=== PATIENT | male | born 1980 | race Caucasian/White ===

== ENCOUNTER 2024-08-29 13:10 | Emergency (ER) | payer OTHER, SELFPAY ==
--- NOTE | 2024-08-29 13:11 | DI.RAD.S_ITS ---
PROCEDURE: XR CHEST 1V INDICATIONS: chest pain TECHNIQUE: One view of the chest was acquired. COMPARISON: None. FINDINGS: Surgical changes and devices: None. Lungs and pleura: Lungs are clear. No pleural effusions or pneumothorax. Mediastinum: Mediastinal contours appear normal. Heart size is normal. Bones and chest wall: No suspicious bony lesions. Overlying soft tissues appear unremarkable. IMPRESSION: No acute cardiopulmonary abnormality is seen. Dictated by: Yahir Syed M.D. on 08/29/2024 at 13:29 Approved by: Yahir Syed M.D. on 08/29/2024 at 13:29
[2024-08-29 13:15] VITALS: BP 117/61; PULSE 76; RESP 14; TEMP 36.9; O2SAT 100; BMI 24.4
--- NOTE | 2024-08-29 13:15 | EKG_ITS ---
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
[2024-08-29 13:44] LABS: Add Manual Diff / Slide Review NO; Basophils Absolute Auto 0 /uL (0-100); Basophils Percent Auto 0.4 % (0-2); Eosinophils Absolute Auto 100 /uL (0-450); Eosinophils Percent Auto 1.6 % (2-4); Hematocrit 46.3 % (41-53); Hemoglobin 15.4 g/dL (13.5-17.5); Lymphocytes Absolute Auto 1300 /uL (1100-4500); Lymphocytes Percent Auto 24.8 % (25-40); Mean Corpuscular HGB Conc 33.2 % (30-36); Mean Corpuscular Hemoglobin 29.9 PG (26-34); Mean Corpuscular Volume 89.9 fL (80-100); Monocytes Absolute Auto 300 /uL (0-900); Neutrophils Absolute Auto 3400 /uL (1500-7000); Neutrophils Percent Auto 67.2 % (50-75); Platelet Count 189 X10^3/uL (150-400); Red Blood Cell Count 5.16 X10^6/uL (4.5-5.9); White Blood Cell Count 5.1 X10^3/uL (4.5-11.0)
[2024-08-29 13:51] LABS: Alanine Aminotransferase 23 IU/L (<50); Albumin 4.5 g/dL (3.5-5.0); Albumin Globulin Ratio 1.3 (1.0-2.8); Alkaline Phosphatase 92 U/L (38-126); Aspartate Aminotransferase 42 IU/L (17-59); BUN Creatinine Ratio 14.3 (6-22); Bilirubin Total 0.8 mg/dL (0.2-1.3); Blood Urea Nitrogen 14 mg/dL (9-20); Calcium 9.2 mg/dL (8.4-10.2); Carbon Dioxide 26 mmol/L (22-32); Chloride 106 mmol/L (98-107); Creatine Kinase 67 U/L (55-170); Estimated Glomerular Filt Rate > 60 mL/min (>60); Globulin 3.6 g/dL (1.7-4.1); Glucose 97 mg/dL (70-100); HEMOLYSIS 46 (0-50); Lipase 67 U/L (23-300); Potassium 4.3 mmol/L (3.4-5.1); Sodium 137 mmol/L (137-145); Total Protein 8.1 g/dL (6.3-8.2)
[2024-08-29 14:02] LABS: INR 1.1 (0.9-1.3); NT-proBNP (BNP-Adult 18+) < 20 pg/mL (<125); PTT Partial Thromboplastin Tim 34 SECONDS (25.1-36.5); Prothrombin Time 11.9 SECONDS (9.4-12.5); Troponin I < 0.012 ng/mL (0.01-0.034)
--- NOTE | 2024-08-29 15:08 | ED.CHESTPAIN ---
HPI - Chest Pain <Mariia Faust PA-C - Last Filed: 08/29/24 16:26> General Chief Complaint: Chest Pain Stated Complaint: Left chest pain with inspiration,pain free now Time Seen by Provider: 08/29/24 15:08 Source: patient Mode of arrival: EMS Limitations: no limitations History of Present Illness HPI narrative: Mr. Ohara is a pleasant 44-year-old male with a past medical history of SVT who presents to the emergency department for an episode of left-sided rib/chest pain that occurred for approximately 30 minutes prior to arrival. 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 Pain was so severe took his breath away. States that this pain lasted for about 30 minutes before completely self resolved. States he had similar pain about 1 month ago that he did not have evaluation for. Patient states a few years ago he had 1 episode of SVT and has since had numerous cardiac workups including stress test and echoes which have been normal. At this time he is completely pain-free. He denies any medication use. Denies leg swelling or pain or history of DVT. Denies central chest pain, back pain, abdominal pain, nausea, vomiting, fevers, chills, cough, smoking, recent surgery or travel, hormone use. He has not allergic to any medications. He does not smoke or do drugs. He occasionally has a glass of wine. Related Data Allergies Allergy/AdvReac Type Severity Reaction Status Date / Time No Known Drug Allergies Allergy Verified 08/29/24 13:21 Review of Systems <Mariia Faust PA-C - Last Filed: 08/29/24 16:26> Review of Systems ROS Unobtainable: All systems reviewed & are unremarkable except as noted in HPI and below Patient History <Mariia Faust PA-C - Last Filed: 08/29/24 16:26> Social History Smoking Status: Unknown if ever smoked Smoking Status: Unknown if ever smoked Exam <Mariia Faust PA-C - Last Filed: 08/29/24 16:26> Narrative Exam Narrative: GENERAL: 44 year old patient appears stated age. Well-developed patient, in no acute distress. HEAD: Atraumatic. Normocephalic. EYES: Extraocular motions intact. No scleral icterus. No injection or drainage. ENT: Nose without bleeding, purulent drainage. NECK: Trachea midline. Cervical ROM intact. CARDIOVASCULAR: Regular rate and rhythm. No chest wall tenderness. RESPIRATORY: ?Nonlabored respirations. ?Speaking in clear, full sentences. ?Clear to auscultation. Breath sounds equal bilaterally. No wheezes, rales, or rhonchi. ? GASTROINTESTINAL: Abdomen soft, non-tender, nondistended. EXTREMITIES: No edema or joint tenderness. BACK: Nontender without deformity or crepitance. NEURO: AOx3. ?Clear speech. ?Moves all 4 extremities appropriately. SKIN: No rash or erythema of visible areas Initial Vital Signs Initial Vital Signs: Vital Signs Temperature 98.4 F 08/29/24 13:15 Pulse Rate 76 08/29/24 13:15 Respiratory Rate 14 08/29/24 13:15 Blood Pressure 117/61 08/29/24 13:15 Pulse Oximetry 100 08/29/24 13:15 Oxygen Delivery Method Room Air 08/29/24 13:15 <Dolores Harrison DO - Last Filed: 08/31/24 08:23> Initial Vital Signs Initial Vital Signs: Vital Signs Temperature 98.4 F 08/29/24 13:15 Pulse Rate 76 08/29/24 13:15 Respiratory Rate 14 08/29/24 13:15 Blood Pressure 117/61 08/29/24 13:15 Pulse Oximetry 100 08/29/24 13:15 Oxygen Delivery Method Room Air 08/29/24 13:15 Course <Mariia Faust PA-C - Last Filed: 08/29/24 16:26> Orders Ordered: ED Orders 08/29/24 13:11 XR chest 1V Stat EKG-12 Lead Stat 08/29/24 13:18 Complete Blood Count AUTO DIFF Stat Comprehensive Metabolic Panel Stat D Dimer Stat Lipase Stat Magnesium Stat NT-proBNP (BNP-Adult 18+) Stat PTT Partial Thromboplastin Bruce Stat Prothrombin Time INR Stat Troponin & CK Cardiac Panel Stat 08/29/24 15:37 Troponin I Stat Vital Signs Vital signs: Vital Signs - 8 hr 08/29/24 13:15 Temperature 98.4 F Pulse Rate 76 Respiratory Rate 14 Blood Pressure 117/61 Pulse Oximetry 100 Oxygen Delivery Method Room Air <DO Chano Coronel Last Filed: 08/31/24 08:23> Orders Ordered: ED Orders 08/29/24 13:11 XR chest 1V Stat EKG-12 Lead Stat 08/29/24 13:18 Complete Blood Count AUTO DIFF Stat Comprehensive Metabolic Panel Stat D Dimer Stat Lipase Stat Magnesium Stat NT-proBNP (BNP-Adult 18+) Stat PTT Partial Thromboplastin Bruce Stat Prothrombin Time INR Stat Troponin & CK Cardiac Panel Stat 08/29/24 15:37 Troponin I Stat Vital Signs Vital signs: Vital Signs - 8 hr 08/29/24 13:15 Temperature 98.4 F Pulse Rate 76 Respiratory Rate 14 Blood Pressure 117/61 Pulse Oximetry 100 Oxygen Delivery Method Room Air MDM - Chest Pain <Mariia Faust PA-C - Last Filed: 08/29/24 16:26> Lab Data 08/29/24 13:18 08/29/24 13:18 Labs: Lab Results 08/29/24 08/29/24 Range/Units 13:18 15:37 WBC 5.1 (4.5-11.0) X10^3/uL RBC 5.16 (4.5-5.9) X10^6/uL Hgb 15.4 (13.5-17.5) g/dL Hct 46.3 (41-53) % MCV 89.9 (80-100) fL MCH 29.9 (26-34) PG MCHC 33.2 (30-36) % RDW 14.0 (11.6-14.8) % Plt Count 189 (150-400) X10^3/uL Neut % (Auto) 67.2 (50-75) % Lymph % (Auto) 24.8 L (25-40) % [place] % (Auto) 6.0 (3-14) % Eos % (Auto) 1.6 L (2-4) % Baso % (Auto) 0.4 (0-2) % Neut # (Auto) 3400 (4842-9971) /uL Lymph # (Auto) 1300 (7308-2589) /uL [place] # (Auto) 300 (0-900) /uL Eos # (Auto) 100 (0-450) /uL Baso # (Auto) 0 (0-100) /uL PT 11.9 (9.4-12.5) SECONDS INR 1.1 (0.9-1.3) APTT 34 (25.1-36.5) SECONDS D-Dimer < 215 (<500) ng/ml Sodium 137 (137-145) mmol/L Potassium 4.3 (3.4-5.1) mmol/L Chloride 106 (98-107) mmol/L Carbon Dioxide 26 (22-32) mmol/L BUN 14 (9-20) mg/dL Creatinine 0.98 (0.66-1.25) mg/dL Estimated GFR > 60 (>60) mL/min BUN/Creatinine Ratio 14.3 (6-22) Glucose 97 (70-100) mg/dL Calcium 9.2 (8.4-10.2) mg/dL Magnesium 2.0 (1.6-2.3) mg/dL Total Bilirubin 0.8 (0.2-1.3) mg/dL AST 42 (17-59) IU/L ALT 23 (<50) IU/L Alkaline Phosphatase 92 (38-126) U/L Total Creatine Kinase 67 (55-170) U/L Troponin I < 0.012 < 0.012 (0.01-0.034) ng/mL NT-Pro-B Natriuret Pep < 20 (<125) pg/mL Total Protein 8.1 (6.3-8.2) g/dL Albumin 4.5 (3.5-5.0) g/dL Globulin 3.6 (1.7-4.1) g/dL Albumin/Globulin Ratio 1.3 (1.0-2.8) Lipase 67 (23-300) U/L [facility] Narrative Medical decision making narrative: 44-year-old healthy male presents to the emergency department for 30 minute episode of left-sided chest/rib pain. He has a history of SVT but reports subsequent negative cardiac workups. Differential diagnosis includes but is not limited to ACS/AZ, PE, costochondritis, gastritis, hiatal hernia, pancreatitis, muscle spasm, nerve pain, pneumonia, etc. On exam patient is in no acute distress, nontoxic appearing, vital signs within normal limits. He had a 30 minute episode of sharp severe left-sided anterior ribcage pain that self-resolved. He has a negative cardiac history except for 1 episode of SVT about 3 years ago. He has no clinical signs of DVT. We will obtain cardiac workup including D-dimer. Labs reveal normal WBC count at 5.1, no anemia. Normal platelets 189. Normal coags. D-dimer negative at 215, no CTA warranted. Troponin negative x2. CMP completely within normal limits. Lipase negative at 67. Chest x-ray reveals no acute cardiopulmonary abnormality is seen. EKG reveals sinus rhythm with short SC. Patient remained chest free during the emergency department. He is relieved that we have ruled out ACS/PE/other emergent cardiac/pulmonary abnormalities but he is frustrated without having a definitive answer. We discussed other possibilities extensively including musculoskeletal/GI causes and I recommend he follow up with his PCP promptly and then a GI doctor for further evaluation as well. Patient verbalized understanding of all information and is agreeable to plan. He is stable for discharge home. <Dolores Harrison, DO - Last Filed: 08/31/24 08:23> Lab Data Labs: Lab Results 08/29/24 08/29/24 Range/Units 13:18 15:37 WBC 5.1 (4.5-11.0) X10^3/uL RBC 5.16 (4.5-5.9) X10^6/uL Hgb 15.4 (13.5-17.5) g/dL Hct 46.3 (41-53) % MCV 89.9 (80-100) fL MCH 29.9 (26-34) PG MCHC 33.2 (30-36) % RDW 14.0 (11.6-14.8) % Plt Count 189 (150-400) X10^3/uL Neut % (Auto) 67.2 (50-75) % Lymph % (Auto) 24.8 L (25-40) % [place] % (Auto) 6.0 (3-14) % Eos % (Auto) 1.6 L (2-4) % Baso % (Auto) 0.4 (0-2) % Neut # (Auto) 3400 (1644-6858) /uL Lymph # (Auto) 1300 (5319-7583) /uL [place] # (Auto) 300 (0-900) /uL Eos # (Auto) 100 (0-450) /uL Baso # (Auto) 0 (0-100) /uL PT 11.9 (9.4-12.5) SECONDS INR 1.1 (0.9-1.3) APTT 34 (25.1-36.5) SECONDS D-Dimer < 215 (<500) ng/ml Sodium 137 (137-145) mmol/L Potassium 4.3 (3.4-5.1) mmol/L Chloride 106 (98-107) mmol/L Carbon Dioxide 26 (22-32) mmol/L BUN 14 (9-20) mg/dL Creatinine 0.98 (0.66-1.25) mg/dL Estimated GFR > 60 (>60) mL/min BUN/Creatinine Ratio 14.3 (6-22) Glucose 97 (70-100) mg/dL Calcium 9.2 (8.4-10.2) mg/dL Magnesium 2.0 (1.6-2.3) mg/dL Total Bilirubin 0.8 (0.2-1.3) mg/dL AST 42 (17-59) IU/L ALT 23 (<50) IU/L Alkaline Phosphatase 92 (38-126) U/L Total Creatine Kinase 67 (55-170) U/L Troponin I < 0.012 < 0.012 (0.01-0.034) ng/mL NT-Pro-B Natriuret Pep < 20 (<125) pg/mL Total Protein 8.1 (6.3-8.2) g/dL Albumin 4.5 (3.5-5.0) g/dL Globulin 3.6 (1.7-4.1) g/dL Albumin/Globulin Ratio 1.3 (1.0-2.8) Lipase 67 (23-300) U/L ECG Data Attestation: I personally reviewed and interpreted this ECG as follows: Prior ECG tracings: not available for review Interpretation: Mank: Sinus rhythm, short SC, rate of 71 SC 96 QRS of 96 QTC 412, no acute ST changes appreciated. Discharge Plan Departure Patient Disposition: Home Clinical Impression: Intermittent left-sided chest pain Instructions: DI for Chest Pain Activity Restrictions/Additional Instructions: Today, we completed a work up for left sided sharp chest pain. Sometimes, we do not always find the cause for your symptoms in one ER visit. The findings on your exam today and on your blood work and/or imaging is reassuring. At this time, it is not 100% certain what is causing your symptoms, but we feel you can be discharged from the emergency department. It is possible this may worsen or you may get better. Please, if you get worse or your symptoms change, return to the emergency department. Otherwise, please follow up with your primary care doctor in 2-3 days. It is possible that your symptoms are coming from a musculoskeletal or a gastrointestinal cause, therefore I do think he would benefit from follow up with the GI doctor. Please follow up with your primary care doctor within the next 2-3 days for ER follow-up. (If you do not have a PCP you can call [phone]. ?to schedule an appointment with an [facility] Primary Care Provider) IF YOU DEVELOP ANY NEW OR WORSENING SYMPTOMS, RETURN TO THE ER! Please read the attached instructions, they highlight more specific treatments and interventions for you at home. Thank you for letting me participate in your care, Mariia Faust PA-C Referrals: Miscellaneous,Doctor, [Primary Care Provider] - Stand Alone Forms: Patient Portal/API/Survey ED Sign-out <Dolores Harrison DO - Last Filed: 08/31/24 08:23> Cosign ED Attending Abbie Attestation: I was immediately available in the department for consultation.
[2024-08-29 15:42] LABS: D Dimer < 215 ng/ml (<500)
[2024-08-29 16:09] LABS: Troponin I < 0.012 ng/mL (0.01-0.034)
[2024-08-29 16:33] VITALS: BP 106/65; PULSE 71; RESP 16; TEMP 36.8; O2SAT 98
== END 2024-08-29 16:34 | disposition home or self-care (01) ==
PROVIDERS: Emergency Medicine; Emergency Provider Physician Assistant
DX: R07.9 Chest pain, unspecified (principal); R07.81 Pleurodynia
CPT/HCPCS: 36415; 71045; 80053; 82550; 83690; 83735; 83880; 84484; 85025; 85379; 85610; 85730; 93005; 93010; 99283; 99284

== ENCOUNTER 2024-11-19 17:26 | Emergency (ER) | payer OTHER, SELFPAY ==
[2024-11-19] VITALS (14 sets, daily range): BP systolic 108–130; BP diastolic 69–85; PULSE 60–73; RESP 8–20; TEMP 37; O2SAT 97–100; BMI 24.4
--- NOTE | 2024-11-19 17:58 | DI.RAD.S_ITS ---
PROCEDURE: XR CHEST 1V INDICATIONS: chest pain TECHNIQUE: One view of the chest was acquired. COMPARISON: [facility], CR, XR CHEST 1V, 08/29/2024, 13:13. FINDINGS: Surgical changes and devices: None. Lungs and pleura: Lungs are clear. No pleural effusions or pneumothorax. Mediastinum: Mediastinal contours appear normal. Heart size is normal. Bones and chest wall: No suspicious bony lesions. Overlying soft tissues appear unremarkable. IMPRESSION: No acute cardiopulmonary abnormality is seen. Dictated by: Lauro Goldstein M.D. on 11/19/2024 at 18:58 Approved by: Lauro Goldstein M.D. on 11/19/2024 at 18:58
--- NOTE | 2024-11-19 17:58 | EKG_ITS ---
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
[2024-11-19 18:29] LABS: Add Manual Diff / Slide Review NO; Basophils Absolute Auto 0 /uL (0-100); Basophils Percent Auto 0.4 % (0-2); Eosinophils Absolute Auto 100 /uL (0-450); Eosinophils Percent Auto 1.7 % (2-4); Hematocrit 42.9 % (41-53); Hemoglobin 14.7 g/dL (13.5-17.5); Lymphocytes Absolute Auto 1800 /uL (1100-4500); Lymphocytes Percent Auto 29.4 % (25-40); Mean Corpuscular HGB Conc 34.2 % (30-36); Mean Corpuscular Hemoglobin 30.2 PG (26-34); Mean Corpuscular Volume 88.2 fL (80-100); Monocytes Absolute Auto 400 /uL (0-900); Neutrophils Absolute Auto 3800 /uL (1500-7000); Neutrophils Percent Auto 61.5 % (50-75); Platelet Count 184 X10^3/uL (150-400); Red Blood Cell Count 4.87 X10^6/uL (4.5-5.9); Red Cell Distribution Width 13.6 % (11.6-14.8); White Blood Cell Count 6.2 X10^3/uL (4.5-11.0)
[2024-11-19] MEDS: ASPIRIN 81 MG CHEW TAB 324 MG PO (18:35)
[2024-11-19 18:37] LABS: Prothrombin Time 11.2 SECONDS (9.4-12.5)
[2024-11-19 18:39] LABS: PTT Partial Thromboplastin Tim 31 SECONDS (25.1-36.5)
[2024-11-19 18:41] LABS: Creatine Kinase 149 U/L (55-170); HEMOLYSIS < 15 (0-50); Sodium 138 mmol/L (137-145)
[2024-11-19 18:42] LABS: Alanine Aminotransferase 21 IU/L (<50); Albumin 4.4 g/dL (3.5-5.0); Albumin Globulin Ratio 1.3 (1.0-2.8); Alkaline Phosphatase 86 U/L (38-126); Aspartate Aminotransferase 32 IU/L (17-59); BUN Creatinine Ratio 15.8 (6-22); Bilirubin Total 0.5 mg/dL (0.2-1.3); Blood Urea Nitrogen 19 mg/dL (9-20); Calcium 9.1 mg/dL (8.4-10.2); Carbon Dioxide 27 mmol/L (22-32); Chloride 104 mmol/L (98-107); Estimated Glomerular Filt Rate > 60 mL/min (>60); Globulin 3.5 g/dL (1.7-4.1); Glucose 95 mg/dL (70-100); Lipase 103 U/L (23-300); Magnesium 1.9 mg/dL (1.6-2.3); Total Protein 7.9 g/dL (6.3-8.2)
--- NOTE | 2024-11-19 18:45 | PC.NURSE ---
Pt reports chronic, intermittent, left sided chest pressure that happened 5 times today and lasted a few seconds. Pt has had this pain almost every day for the past year. Denies any trauma, denies any SOB, n/v or any other symptoms. 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 Came in today to ED because this happened multiple times today. Currently no chest pressure/discomfort. Call light within reach and encouraged to use for any changes or needs.
[2024-11-19 18:53] LABS: NT-proBNP (BNP-Adult 18+) < 20 pg/mL (<125); Troponin I < 0.012 ng/mL (0.01-0.034)
[2024-11-19 20:59] LABS: Troponin I < 0.012 ng/mL (0.01-0.034)
--- NOTE | 2024-11-19 22:47 | ED_ITS ---
HPI - Chest Pain General Chief Complaint: Chest Pain Stated Complaint: chest px Time Seen by Provider: 11/19/24 18:41 Source: patient Mode of arrival: Ambulatory History of Present Illness HPI narrative: otherwise healthy 44-year-old gentleman presents with severe lancinating pain left 10th rib mid clavicular line reproducible with pressing so painful that it takes his breath away and caused significant anxiety. He was sitting watching television when the pain happened this evening. He had a similar episode in early August with complete cardiac workup. He has since had chest CT scans, gastroenterology referrals has endoscopies scheduled. He had a cardiac evaluation that did not suggest coronary events. He does continue to be quite active including weightlifting. He states that he has not changed his routine and did not add any new exercises over the last couple of days. He has met with his primary care physician after similar episode occurred in August. The pain is not associated with nausea, diaphoresis, dyspnea. He has no palpitations. He notes that he had an episode of SVT approximately 3 years ago with complete cardiac workup at that time including EP studies. He was given a [facility] cardiac bill of [employer] at that time as well Related Data Allergies Allergy/AdvReac Type Severity Reaction Status Date / Time No Known Drug Allergies Allergy Verified 09/01/24 08:36 Review of Systems Review of Systems Narrative: Pertinent positive and negative findings as per HPI Patient History Social History Smoking Status: Never smoker Smoking Status: Never smoker Exam Initial Vital Signs Initial Vital Signs: Vital Signs Temperature 98.6 F 11/19/24 17:49 Pulse Rate 73 11/19/24 17:49 Respiratory Rate 20 11/19/24 17:49 Blood Pressure 128/85 11/19/24 17:49 Pulse Oximetry 100 11/19/24 17:49 Oxygen Delivery Method Room Air 11/19/24 17:49 General: Healthy appearing, in no acute distress. Able to give a complete and coherent history. Well-nourished well-developed HEENT: Moist mucous membranes, normal sclera with reactive pupils, Neck: No JVD, supple Respiratory: Lungs are clear to auscultation, no wheezing no rales no rhonchi. Full and symmetrical air movement Cardiac: Regular rate and rhythm no murmurs no bruits. He does have reproducible point tenderness left 10th rib mid clavicular line without overlying skin changes. Abdomen: Soft, nontender, good bowel tones, no flank pain Skin: Warm and dry, no rashes Neurologic: Grossly neurologically intact with no obvious asymmetries or abnormalities Extremities: No trauma, well perfused Psych: Cooperative, appropriate insight and affect Course Orders Ordered: ED Orders 11/19/24 17:58 XR chest 1V Stat EKG-12 Lead Stat 11/19/24 18:20 Complete Blood Count AUTO DIFF Stat Comprehensive Metabolic Panel Stat Lipase Stat Magnesium Stat NT-proBNP (BNP-Adult 18+) Stat PTT Partial Thromboplastin Bruce Stat Prothrombin Time INR Stat Troponin & CK Cardiac Panel Stat 11/19/24 20:26 Trop I [Troponin I] Stat Discontinued Medications Aspirin (Aspirin 81 Mg Chew Tab) 324 mg PO NOW ONE Stop: 11/19/24 17:59 Last Admin: 11/19/24 18:35 Dose: 324 mg Documented By: MERCEDES Vital Signs Vital signs: Vital Signs - 8 hr 11/19/24 17:49 11/19/24 18:29 11/19/24 18:30 Temperature 98.6 F Pulse Rate 73 65 68 Respiratory Rate 20 Blood Pressure 128/85 Pulse Oximetry 100 97 100 Oxygen Delivery Method Room Air 11/19/24 18:30 11/19/24 19:00 11/19/24 19:00 Temperature Pulse Rate 62 Respiratory Rate 8 L Blood Pressure 116/79 122/76 Pulse Oximetry 100 Oxygen Delivery Method 11/19/24 19:30 11/19/24 19:30 11/19/24 20:00 Temperature Pulse Rate 62 Respiratory Rate 14 Blood Pressure 111/75 125/75 Pulse Oximetry 99 Oxygen Delivery Method Room Air 11/19/24 20:00 11/19/24 20:30 11/19/24 20:30 Temperature Pulse Rate 71 62 Respiratory Rate 17 13 Blood Pressure 110/73 Pulse Oximetry 99 99 Oxygen Delivery Method 11/19/24 21:00 11/19/24 21:00 11/19/24 21:30 Temperature Pulse Rate 63 Respiratory Rate 14 Blood Pressure 119/69 109/71 Pulse Oximetry 100 Oxygen Delivery Method 11/19/24 21:30 Temperature Pulse Rate 60 Respiratory Rate 14 Blood Pressure Pulse Oximetry 98 Oxygen Delivery Method Room Air MDM - Chest Pain Lab Data 11/19/24 18:20 11/19/24 18:20 Labs: Lab Results 11/19/24 11/19/24 Range/Units 18:20 20:26 WBC 6.2 (4.5-11.0) X10^3/uL RBC 4.87 (4.5-5.9) X10^6/uL Hgb 14.7 (13.5-17.5) g/dL Hct 42.9 (41-53) % MCV 88.2 (80-100) fL MCH 30.2 (26-34) PG MCHC 34.2 (30-36) % RDW 13.6 (11.6-14.8) % Plt Count 184 (150-400) X10^3/uL Neut % (Auto) 61.5 (50-75) % Lymph % (Auto) 29.4 (25-40) % [place] % (Auto) 7.0 (3-14) % Eos % (Auto) 1.7 L (2-4) % Baso % (Auto) 0.4 (0-2) % Neut # (Auto) 3800 (8688-9417) /uL Lymph # (Auto) 1800 (2775-8024) /uL [place] # (Auto) 400 (0-900) /uL Eos # (Auto) 100 (0-450) /uL Baso # (Auto) 0 (0-100) /uL PT 11.2 (9.4-12.5) SECONDS INR 1.0 (0.9-1.3) APTT 31 (25.1-36.5) SECONDS Sodium 138 (137-145) mmol/L Potassium 4.0 (3.4-5.1) mmol/L Chloride 104 (98-107) mmol/L Carbon Dioxide 27 (22-32) mmol/L BUN 19 (9-20) mg/dL Creatinine 1.20 (0.66-1.25) mg/dL Estimated GFR > 60 (>60) mL/min BUN/Creatinine Ratio 15.8 (6-22) Glucose 95 (70-100) mg/dL Calcium 9.1 (8.4-10.2) mg/dL Magnesium 1.9 (1.6-2.3) mg/dL Total Bilirubin 0.5 (0.2-1.3) mg/dL AST 32 (17-59) IU/L ALT 21 (<50) IU/L Alkaline Phosphatase 86 (38-126) U/L Total Creatine Kinase 149 (55-170) U/L Troponin I < 0.012 < 0.012 (0.01-0.034) ng/mL NT-Pro-B Natriuret Pep < 20 (<125) pg/mL Total Protein 7.9 (6.3-8.2) g/dL Albumin 4.4 (3.5-5.0) g/dL Globulin 3.5 (1.7-4.1) g/dL Albumin/Globulin Ratio 1.3 (1.0-2.8) Lipase 103 (23-300) U/L MDM Narrative Medical decision making narrative: CC:Left anterior sharp chest pain Complicating co-morbidities: prior episode in August of similar pain, SVT approximately 3 years ago Data collected from: patient Medical records reviewed: ER notes from August with similar pain are reviewed Differential considered: acute coronary syndrome, pneumothorax, rib pathology, musculoskeletal pain Exam documented above, pertinent findings include: reproducible pain 10th rib anterior midclavicular line without skin changes. Remainder of exam is benign Lab Test results independently reviewed as above. Pertinent findings: CBC is unremarkable chemistries are reassuring initial and repeat troponins are unremarkable Independently reviewed EKG: sinus rhythm at a rate of 63. No acute ischemic changes. He does have single PVC appreciated Imaging studies independently reviewed: chest x-ray is unremarkable Treatments: aspirin given on arrival Discussion: otherwise healthy 44-year-old gentleman with the acute onset severe chest pain that does appear to be musculoskeletal and point tender mid axillary line 10th rib. No findings on chest x-ray. The pain is not consistently at this spot my suspicion for fractures or bony tumor is low. The cardiac workup is unremarkable in his heart score is 0. There was no indication for additional imaging or hospitalization at this time. He has already discussed this issue with his primary care physician does have further follow up scheduled. He is safe for discharge Discharge Plan Departure Patient Disposition: Home Clinical Impression: Chest pain, musculoskeletal Instructions: DI for Atypical Chest Pain Activity Restrictions/Additional Instructions: thank you for coming in today, I think it was appropriate to come in for heart evaluation fortunately, your workup today was quite reassuring. Your chest x-ray was completely normal. Your EKG did not suggest acute heart abnormalities. Your blood work showed normal white blood cells, red blood cells, kidney function, liver function. There was no evidence of acute heart injury with your troponin testing which was repeated 2 hours later and again remained negative with the description of your pain and the fact that you complaint exactly to where it hurts and with pushing can make it hurt worse is strongly suspicious for musculoskeletal pain related to tendons or muscles along your rib. At this point I believe discharge home is safe. I am glad you discuss this with your primary care physician sounds like you have all appropriate workup already scheduled. If you find that you have chest pain that is deeper in your chest, is not reproducible with palpation is associated with being short of breath, dizzy or sweaty you do need to return to the ER Referrals: ProviderAbdias [Primary Care Provider] - Stand Alone Forms: Patient Portal/API/Survey
== END 2024-11-19 23:31 | disposition home or self-care (01) ==
PROVIDERS: Emergency Medicine; Emergency Provider Emergency Medicine
DX: R07.89 Other chest pain (principal)
CPT/HCPCS: 36415; 71045; 80053; 82550; 83690; 83735; 83880; 84484; 85025; 85610; 85730; 93005; 99284

== ENCOUNTER 2025-05-28 12:48 | Emergency (ER) | payer OTHER, SELFPAY ==
[2025-05-28] VITALS (7 sets, daily range): BP systolic 106–125; BP diastolic 67–79; PULSE 60–79; RESP 18; TEMP 36.5; O2SAT 96–99; BMI 24.4
--- NOTE | 2025-05-28 12:54 | EKG_ITS ---
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
--- NOTE | 2025-05-28 12:54 | DI.RAD.S_ITS ---
PROCEDURE: XR CHEST 1V INDICATIONS: Chest Pain TECHNIQUE: One view of the chest was acquired. COMPARISON: [facility], CR, XR CHEST 1V, 11/19/2024, 17:56. [facility], CR, XR CHEST 1V, 08/29/2024, 13:13. FINDINGS: Surgical changes and devices: None. Lungs and pleura: Lungs are clear. No pleural effusions or pneumothorax. Mediastinum: Mediastinal contours appear normal. Heart size is normal. Bones and chest wall: No suspicious bony lesions. Overlying soft tissues appear unremarkable. IMPRESSION: No acute cardiopulmonary abnormality is seen. Dictated by: Yahir Syed M.D. on 05/28/2025 at 13:54 Approved by: Yahir Syed M.D. on 05/28/2025 at 13:55
[2025-05-28] MEDS: ASPIRIN 81 MG CHEW TAB 324 MG PO (12:58)
[2025-05-28 13:17] LABS: Add Manual Diff / Slide Review NO; Hematocrit 43.1 % (41-53); Hemoglobin 15.0 g/dL (13.5-17.5); Lymphocytes Absolute Auto 1300 /uL (1100-4500); Mean Corpuscular HGB Conc 34.8 % (30-36); Mean Corpuscular Hemoglobin 30.5 PG (26-34); Mean Corpuscular Volume 87.6 fL (80-100); Platelet Count 186 X10^3/uL (150-400)
[2025-05-28 13:20] LABS: INR 1.1 (0.9-1.3); Prothrombin Time 12.1 SECONDS (9.4-12.5)
[2025-05-28 13:23] LABS: PTT Partial Thromboplastin Tim 29 SECONDS (25.1-36.5)
[2025-05-28 13:24] LABS: Alanine Aminotransferase 18 IU/L (<50); Albumin 4.5 g/dL (3.5-5.0); Albumin Globulin Ratio 1.3 (1.0-2.8); Alkaline Phosphatase 71 U/L (38-126); Blood Urea Nitrogen 12 mg/dL (9-20); Calcium 9.0 mg/dL (8.4-10.2); Carbon Dioxide 27 mmol/L (22-32); Chloride 102 mmol/L (98-107); Creatine Kinase 47 U/L (55-170); Estimated Glomerular Filt Rate > 60 mL/min (>60); Globulin 3.5 g/dL (1.7-4.1); Glucose 112 mg/dL (70-99); HEMOLYSIS < 15 (0-50); Lipase 67 U/L (23-300); Magnesium 1.9 mg/dL (1.6-2.3); Potassium 3.9 mmol/L (3.4-5.1); Sodium 138 mmol/L (137-145); Total Protein 8.0 g/dL (6.3-8.2)
[2025-05-28 13:36] LABS: NT-proBNP (BNP-Adult 18+) < 20 pg/mL (<125); Troponin I < 0.012 ng/mL (0.01-0.034)
--- NOTE | 2025-05-28 15:11 | ED.CHESTPAIN ---
HPI - Chest Pain General Chief Complaint: Chest Pain Stated Complaint: Chest pain Time Seen by Provider: 05/28/25 15:10 Source: patient Mode of arrival: Ambulatory Limitations: no limitations History of Present Illness HPI narrative: Past medical history is significant for recurrent chest and abdominal pain since July of last year. Pt presents to the ER with severe L sided chest pain. The patient, Tyree, reports experiencing a recurring pain that typically occurs about 3 inches below his left pectoral muscle. He describes the sensation as if someone is forcefully jamming a finger between his ribs. Today, the pain was particularly severe, located in the center right below his sternum and on the right side just above the bottom of his rib cage. The pain has been occurring weekly since July of last year. Tyree states that the pain often starts in the mornings around 10 or 11 o'clock, before lunchtime. He experiences a loss of appetite and stomach irritation, followed by the onset of rib pain. He usually tries to manage it by drinking a protein shake or eating something small. In the evenings, after eating a normal dinner, he often feels very full and experiences stomach pain that feels like gas, although he doesn't actually have gas. Today's episode began before lunch, intensifying as he arrived at the restaurant. The pain persisted through his meal, which consisted of two slices of pork. The severity of the pain brought tears to his eyes and made it difficult for him to stand up straight. Tyree has undergone extensive medical investigations for this issue. He reports having had an EKG, blood pressure checks, lab tests, X-rays, and blood draws. He has also had a CT of his abdomen, an MRI of his back due to upper left back pain, a colonoscopy, and an endoscopy. He has consulted with a psychiatric mental health nurse and is scheduled to see an employee placement specialist on June 12 to discuss potential disc issues in his back and rib pain. The patient denies any fever, cough, or congestion. He has not experienced a racing heart or shortness of breath. He has no history of blood clots in his legs or lungs, and previous tests for blood clots were negative (D-dimer). Tyree reports never experiencing heartburn, and his endoscopy did not reveal any ulcers or gastritis. He has not had pancreatitis before and still has his gallbladder. He denies any pain when urinating, any rashes in the area of pain, or a history of shingles. There is no recent back injury reported. Related Data Allergies Allergy/AdvReac Type Severity Reaction Status Date / Time No Known Drug Allergies Allergy Verified 09/01/24 08:36 Patient History Social History Smoking Status: Never smoker Smoking Status: Never smoker Exam Narrative Exam Narrative: VS as noted above Focused physical exam as follows: General: Well developed, well nourished, no acute distress; anxious appearing HEENT: pink palpebral conjunctiva, anicteric sclera, TAL, moist mucous membranes, no JVD, no cervical lymphadenopathy Lungs: no respiratory distress, clear to auscultation without wheezes or crackles; equal breath sounds; reproducible tenderness over the L anterior lower rib region with palpation Heart: normal rate, regular rhythm, no appreciable murmurs Abdomen: soft, nontender, no rebound or rigidity Musculoskeletal: no gross deformities with full ROM in all extremities, no pedal edema Skin: pink, warm; no rashes Neuro: ?AAOx3, GCS 15, nonfocal exam Psyche: no SI/HI, normal affect; anxious Initial Vital Signs Initial Vital Signs: Vital Signs Temperature 97.7 F 05/28/25 12:50 Pulse Rate 79 05/28/25 12:50 Respiratory Rate 18 05/28/25 12:50 Blood Pressure 125/79 05/28/25 12:50 Pulse Oximetry 98 05/28/25 12:50 Oxygen Delivery Method Room Air 05/28/25 12:50 Course Orders Ordered: Discontinued Medications Aspirin (Aspirin 81 Mg Chew Tab) 324 mg PO NOW ONE Stop: 05/28/25 12:55 Last Admin: 05/28/25 12:58 Dose: 324 mg Documented By: DILSHAD Vital Signs Vital signs: Vital Signs - 8 hr 05/28/25 12:50 Temperature 97.7 F Pulse Rate 79 Respiratory Rate 18 Blood Pressure 125/79 Pulse Oximetry 98 Oxygen Delivery Method Room Air MDM - Chest Pain Lab Data 05/28/25 13:00 05/28/25 13:00 Labs: Lab Results 05/28/25 05/28/25 Range/Units 13:00 13:00 WBC 4.1 L (4.5-11.0) X10^3/uL RBC 4.92 (4.5-5.9) X10^6/uL Hgb 15.0 (13.5-17.5) g/dL Hct 43.1 (41-53) % MCV 87.6 (80-100) fL MCH 30.5 (26-34) PG MCHC 34.8 (30-36) % RDW 13.4 (11.6-14.8) % Plt Count 186 (150-400) X10^3/uL Neut % (Auto) 60.0 (50-75) % Lymph % (Auto) 31.1 (25-40) % [place] % (Auto) 6.2 (3-14) % Eos % (Auto) 2.3 (2-4) % Baso % (Auto) 0.4 (0-2) % Neut # (Auto) 2500 (8855-8973) /uL Lymph # (Auto) 1300 (2846-1167) /uL [place] # (Auto) 300 (0-900) /uL Eos # (Auto) 100 (0-450) /uL Baso # (Auto) 0 (0-100) /uL PT 12.1 (9.4-12.5) SECONDS INR 1.1 (0.9-1.3) APTT 29 (25.1-36.5) SECONDS Sodium 138 (137-145) mmol/L Potassium 3.9 (3.4-5.1) mmol/L Chloride 102 (98-107) mmol/L Carbon Dioxide 27 (22-32) mmol/L BUN 12 (9-20) mg/dL Creatinine 1.05 (0.66-1.25) mg/dL Estimated GFR > 60 (>60) mL/min BUN/Creatinine Ratio 11.4 (6-22) Glucose 112 H (70-99) mg/dL Calcium 9.0 (8.4-10.2) mg/dL Magnesium 1.9 (1.6-2.3) mg/dL Total Bilirubin 0.7 (0.2-1.3) mg/dL AST 26 (17-59) IU/L ALT 18 (<50) IU/L Alkaline Phosphatase 71 (38-126) U/L Total Creatine Kinase 47 L (55-170) U/L Troponin I < 0.012 (0.01-0.034) ng/mL NT-Pro-B Natriuret Pep < 20 (<125) pg/mL Total Protein 8.0 (6.3-8.2) g/dL Albumin 4.5 (3.5-5.0) g/dL Globulin 3.5 (1.7-4.1) g/dL Albumin/Globulin Ratio 1.3 (1.0-2.8) Lipase 67 67 (23-300) U/L MDM Narrative Medical decision making narrative: HPI, PMHx, PSHx, Medication list, Allergies, ROS and Focused exam were reviewed above. ?Differential diagnosis as noted below. ?Social determinants affecting care considered. ?All of these were taken into consideration warranting above listed work up. ?Consultations as deemed necessary were documented below (if listed). Labs (if ordered and noted) were independently reviewed by me. Imaging studies (if ordered and noted) were independently reviewed by me EKG (if noted) was independently reviewed by me External documents (if reviewed) are documented above Initial VS noted above. ? Differential diagnosis considered include (but not limited to) the following: ACS, cardiac dysrhythmia, pericarditis, PE, pleurisy, pleural effusion, pneumonia, viral resp illness, costochondritis, hiatal hernia, GERD, gastritis, gastric ulcer, pancreatitis, cholelithiasis/cystitis, anxiety, adverse effect of illicit drug/ETOH Pt interviewed and examined. 1300 - Bedside EKG showed NSR @ 74; no STTW changes; QTc 415 By the time I evaluated pt, his pain had markedly improved and did not require any pain meds although still uncomfortable. Work up initiated and unremarkable. Prior visits in the ER, they've only done CXRs as he was told his D-dimer was normal. Considering his recurrent L sided chest pain with multiple ER visits, he is agreeable to proceed with CTA chest to evaluate for PE. CTA chest ordered and results reviewed below: IMPRESSION: No pulmonary embolus. 3 mm solid nodule in the left lower lobe. Consider 12 month follow-up if at high risk for developing cancer, per Fleischner society guidelines. HEART score - 1 Symptoms do not sound cardiac in etiology. Discussed reassuring work up with pt thus far and need to follow up with PCP and his specialists for these ongoing symptoms. He was notified of the incidental lung nodule finding. Stable for discharge with return precautions. Discharge Plan Departure Patient Disposition: Home Clinical Impression: Chest wall pain Activity Restrictions/Additional Instructions: Work up today was generally reassuring. Follow up with your regular doctor as needed. Return to the ER if with worsening symptoms. Referrals: [facility] [Primary Care Provider, Family Practice] Stand Alone Forms: Patient Portal/API
--- NOTE | 2025-05-28 15:31 | DI.CT.S_ITS ---
PROCEDURE: CT ANGIO CHEST PE PROTOCOL INDICATIONS: L chest pain TECHNIQUE: After the administration of intravenous contrast, 2 mm thick sections acquired from the pulmonary apices to the posterior costophrenic angles. 3-dimensional maximum intensity projection (MIP) coronal and sagittal reformats were then acquired through the thorax. For radiation dose reduction, the following was used: automated exposure control, adjustment of mA and/or kV according to patient size. COMPARISON: None. FINDINGS: Image quality: Diagnostic. Pulmonary arteries: Pulmonary arteries are normal in size, and demonstrate no intraluminal filling defects to suggest central pulmonary embolism. Lower Neck: No enlarged lymph nodes. Thyroid: No thyroid nodules which require sonographic follow up, per consensus guidelines. Axillae: No enlarged lymph nodes. Chest Wall: Unremarkable. Bones: Unremarkable. Lungs and Pleura: No pneumothorax or pleural effusions. No consolidation or suspicious nodules. 3 mm solid nodule, left lower lobe. Heart: Heart size is normal. No pericardial effusion. Thoracic Vessels: No aortic aneurysm. Mediastinum and María: No enlarged lymph nodes. Esophagus: No wall thickening. No hiatal hernia. Upper Abdomen: Visualized upper abdomen solid organs and bowel loops appear normal. IMPRESSION: No pulmonary embolus. 3 mm solid nodule in the left lower lobe. Consider 12 month follow-up if at high risk for developing cancer, per Fleischner society guidelines. Dictated by: Yahir Syed M.D. on 05/28/2025 at 16:03 Approved by: Yahir Syed M.D. on 05/28/2025 at 16:08
[2025-05-28 15:42] LABS: Lipase 67 U/L (23-300)
== END 2025-05-28 16:46 | disposition home or self-care (01) ==
PROVIDERS: Emergency Provider Emergency Medicine
DX: R07.89 Other chest pain (principal); R91.1 Solitary pulmonary nodule
CPT/HCPCS: 36415; 71045; 71275; 80053; 82550; 83690; 83735; 83880; 84484; 85025; 85610; 85730; 93005; 99284; Q9967